=== PATIENT | female | born 1955 | race Asian ===

== ENCOUNTER 2025-11-07 21:04 | Emergency (ER) | payer MEDICARE, OTHER ==
[~2025-11-07] VITALS: Ht 152.4 cm; Wt 52.3 kg
[2025-11-07 21:11] VITALS: TEMP 98.1
[2025-11-07] MEDS: PB/HYOSCY/ATR/SCOP/LIDO/MAALOX 55 ML BOTTLE PO ONE (23:03)
[2025-11-07 23:44] VITALS: BP 134/66; PULSE 60; RESP 18; O2SAT 99
== END 2025-11-07 23:54 | disposition home or self-care (01) ==
LOC: EMS 21:12
DX: T54.91XA Toxic effect of unspecified corrosive substance, accidental (unintentional), initial encounter (principal); Z98.890 Other specified postprocedural states; X58.XXXA Exposure to other specified factors, initial encounter
CPT/HCPCS: 99282; Z7502; Z7610